=== PATIENT | female | born 1930 | race Caucasian/White ===

== ENCOUNTER 2016-08-21 23:02 | Emergency (ER) | payer MEDICARE, OTHER ==
[~2016-08-21] VITALS: Ht 158.8 cm; Wt 73.2 kg
[2016-08-21 23:10] VITALS: RESP 16; O2SAT 98
[2016-08-21] MEDS ORDERED: INDA1.25 PO (23:39)
[2016-08-21] MEDS ORDERED: ATEN25TA PO (23:39)
[2016-08-21 23:40] VITALS: BP 208/82; PULSE 64; RESP 16; TEMP 98.4; O2SAT 99
[2016-08-21] MEDS ORDERED: SODIUM CHLORIDE 0.9% FLUSH 10 ML FLUSH IVF PRN (23:45)
[2016-08-21] MEDS ORDERED: ACETAMINOPHEN/HYDROcodone 325 MG/5 MG TAB PO ONE (23:45)
[2016-08-22] MEDS ORDERED: ENAL10TA PO (00:14)
[2016-08-22] MEDS ORDERED: LEVO50TA4 PO (00:14)
[2016-08-22] MEDS ORDERED: RABE1TAB PO (00:14)
[2016-08-22] MEDS ORDERED: ATOR10TA15 PO (00:14)
--- NOTE | 2016-08-22 00:15 | RADHPO ---
EXAM DATE/TIME: 08/21/2016 23:44 [place] COMPARISON: No previous studies available for comparison. INDICATIONS : Chest pain after fall this pm. MEDICAL HISTORY : None. SURGICAL HISTORY : None. ENCOUNTER: Initial ACUITY: 1 day PAIN SCORE: 8/10 LOCATION: Bilateral upper chest FINDINGS: PA and lateral views of the chest demonstrate the lungs to be symmetrically aerated without evidence of mass, infiltrate or effusion. The cardiomediastinal contours are unremarkable. Osseous structure s are intact. CONCLUSION: No acute disease. Armando Joseph MD on August 22, 2016 at 0:14 Board Certified Radiologist. This report was verified electronically.
[2016-08-22 00:58] LABS: AUTOMATED NEUTROPHIL # 4.9 TH/MM3 (1.8-7.7); BASOPHIL # 0.1 TH/MM3 (0-0.2); BASOPHIL % 0.6 % (0.0-2.0); EOSINOPHIL # 0.1 TH/MM3 (0-0.4); EOSINOPHIL % 1.4 % (0.0-4.0); HEMATOCRIT 36.4 % (35.0-46.0); HEMO FLAGS DIFF FINAL; LYMPH % 34.4 % (9.0-44.0); MEAN CELL VOLUME 87.2 FL (80.0-100.0); MEAN CORPUSCULAR HEMOGLOBIN 28.8 PG (27.0-34.0); MONO % 8.2 % (0.0-8.0); NEUT % 55.4 % (16.0-70.0); PLATELET COUNT 406 TH/MM3 (150-450); RED BLOOD COUNT 4.18 MIL/MM3 (4.00-5.30); RED CELL DISTRIBUTION WIDTH 13.3 % (11.6-17.2); WHITE BLOOD COUNT 8.8 TH/MM3 (4.0-11.0)
[2016-08-22 01:11] LABS: CHLORIDE 93 MEQ/L (98-107); POTASSIUM 3.8 MEQ/L (3.5-5.1); SODIUM (NA) 129 MEQ/L (136-145)
[2016-08-22 01:15] LABS: ANION GAP 10 MEQ/L (5-15); APTT (PATIENT) 23.6 SEC (24.3-30.1); BICARBONATE 25.7 MEQ/L (21.0-32.0); BLOOD UREA NITROGEN 25 MG/DL (7-18); INTERNATIONAL NORMALIZED RATIO 0.9 RATIO; PROTHROMBIN TIME - PATIENT 9.8 SEC (9.8-11.6)
[2016-08-22 01:18] LABS: ALT (GPT) 19 U/L (10-53); AST (GOT) 17 U/L (15-37); GLOMERULAR FILTRATION RATE 43 ML/MIN (>89)
[2016-08-22 01:20] LABS: TOTAL BILIRUBIN ADULT 0.4 MG/DL (0.2-1.0)
[2016-08-22 01:21] LABS: ALKALINE PHOSPHATASE 110 U/L (45-117); CREATINE KINASE 107 U/L (26-192)
[2016-08-22 01:30] VITALS: BP 148/78; PULSE 64; RESP 16; O2SAT 99
[2016-08-22 01:33] LABS: CKMB 3.2 NG/ML (0.5-3.6)
[2016-08-22] MEDS ORDERED: NORC5TAB PO ×2 (02:06→02:23)
--- NOTE | 2016-08-22 02:07 | PD ---
HPI Chief Complaint: Fall Time Seen by Provider: 23:30 Travel History International Travel<30 days: No Contact w/Intl Traveler<30days: No Traveled to known affect area: No History of Present Illness HPI Patient is an 86-year-old female presents emergency department after slip and fall leading to an abrasion of her right hand as well as some anterior chest pain. Patient states she was getting out of bed and slipped and rubbed her right hand down the side of the piece of furniture. She states she landed she has chest pain which is worse when she sits up forward or takes deep breath. She denies any chest pain shortness of breath weakness dizziness or presyncopal symptoms before the event happened. Her chief concern is the abrasion to the right hand a secondary concern of her chest achiness. She denies any head injury or neck injury. She denies any use of blood thinners. She states she has a history of left bundle branch block. PFSH Past Medical History Heart Rhythm Problems: Yes (HX A-FIB) Diminished Hearing: Yes (BILAT HEARING AIDS) Diverticulitis: Yes GERD: Yes Hypertension: Yes Thyroid Disease: Yes Tetanus Vaccination: < 5 Years Influenza Vaccination: Yes ?: Not : 0 Past Surgical History Appendectomy: Yes Cholecystectomy: Yes Hysterectomy: Yes Tonsillectomy: Yes Social History Alcohol Use: No Tobacco Use: No Substance Use: No Allergies-Medications (Allergen,Severity, Reaction): Coded Allergies: No Known Allergies (Unverified , 08/21/16) Reported Meds & Prescriptions Reported Meds & Active Scripts Active Phillips (Hydrocodone-Acetaminophen) 5-325 mg Tab 1 Tab PO Q6H PRN Reported Rabeprazole (Rabeprazole Sodium) 20 Mg Tab 20 Mg PO DAILY Enalapril (Enalapril Maleate) 10 Mg Tab 10 Mg PO BID Atorvastatin (Atorvastatin Calcium) 10 Mg Tab 10 Mg PO HS Levothyroxine (Levothyroxine Sodium) 50 Mcg Tab 50 Mcg PO DAILY Indapamide 1.25 Mg Tab 1 Tab PO DAILY Atenolol 25 Mg Tab 25 Mg PO DAILY Review of Systems Except as stated in HPI: all other systems reviewed are Neg Physical Exam Narrative GENERAL: Well-developed well-nourished, quite pleasant in no apparent distress. SKIN: Patient has a curvilinear abrasion to the dorsum of the right hand approximately 4 cm to 5 cm in length. There is no active bleeding. HEAD: Atraumatic. No raccoons eyes no more signs. Normocephalic. EYES: Pupils equal and round. No scleral icterus. No injection or drainage. ENT: No nasal bleeding or discharge. Mucous membranes pink and moist. NECK: Trachea midline. No JVD. CARDIOVASCULAR: Regular rate and rhythm. No murmur appreciated. There is some left-sided chest wall tenderness. Fairly mild. Patient does have tenderness when she sits forward. RESPIRATORY: No accessory muscle use. Clear to auscultation. Breath sounds equal bilaterally. GASTROINTESTINAL: Abdomen soft, non-tender, nondistended. Hepatic and splenic margins not palpable. MUSCULOSKELETAL: No obvious deformities. No clubbing. No cyanosis. No edema. Pulses motor and sensory are intact distally, cap refill is brisk in all digits of the upper extremities. No tenderness of the wrist or elbow or shoulder in the upper extremities. No midline CT or L-spine tenderness. Head is atraumatic. NEUROLOGICAL: Awake and alert. No obvious cranial nerve deficits. Motor grossly within normal limits. Normal speech. PSYCHIATRIC: Appropriate mood and affect; insight and judgment normal. Data Data Last Documented VS Vital Signs Date Time Temp Pulse Resp B/P Pulse Ox O2 Delivery O2 Flow Rate FiO2 08/22/16 02:25 63 16 166/63 99 Room Air 08/21/16 23:40 98.4 Orders Electrocardiogram (08/21/16 23:36) Ckmb (Isoenzyme) Profile (08/21/16 23:36) Complete Blood Count With Diff (08/21/16 23:36) Comprehensive Metabolic Panel (08/21/16 23:36) Magnesium (Mg) (08/21/16 23:36) Prothrombin Time / Inr (Pt) (08/21/16 23:36) Act Partial Throm Time (Ptt) (08/21/16 23:36) Troponin I (08/21/16 23:36) Ecg Monitoring (08/21/16 23:36) Iv Access Insert/Monitor (08/21/16 23:36) Oximetry (08/21/16 23:36) Oxygen Administration (08/21/16 23:36) Sodium Chloride 0.9% Flush (Ns Flush) (08/21/16 23:45) Chest, Pa & Lat (08/21/16 23:36) Acetamin-Hydrocod 325-5 Mg (Phillips 5-325 (08/21/16 23:45) CKMB (08/22/16 00:25) CKMB% (08/22/16 00:25) Resp Incentive Spirometry (08/22/16 ) Labs Laboratory Tests Test 08/22/16 00:25 White Blood Count 8.8 TH/MM3 Red Blood Count 4.18 MIL/MM3 Hemoglobin 12.0 GM/DL Hematocrit 36.4 % Mean Corpuscular Volume 87.2 FL Mean Corpuscular Hemoglobin 28.8 PG Mean Corpuscular Hemoglobin 33.0 % Concent Red Cell Distribution Width 13.3 % Platelet Count 406 TH/MM3 Mean Platelet Volume 7.5 FL Neutrophils (%) (Auto) 55.4 % Lymphocytes (%) (Auto) 34.4 % Monocytes (%) (Auto) 8.2 % Eosinophils (%) (Auto) 1.4 % Basophils (%) (Auto) 0.6 % Neutrophils # (Auto) 4.9 TH/MM3 Lymphocytes # (Auto) 3.0 TH/MM3 Monocytes # (Auto) 0.7 TH/MM3 Eosinophils # (Auto) 0.1 TH/MM3 Basophils # (Auto) 0.1 TH/MM3 CBC Comment DIFF FINAL Differential Comment Prothrombin Time 9.8 SEC Prothromb Time International 0.9 RATIO Ratio Activated Partial 23.6 SEC Thromboplast Time Sodium Level 129 MEQ/L Potassium Level 3.8 MEQ/L Chloride Level 93 MEQ/L Carbon Dioxide Level 25.7 MEQ/L Anion Gap 10 MEQ/L Blood Urea Nitrogen 25 MG/DL Creatinine 1.20 MG/DL Estimat Glomerular Filtration 43 ML/MIN Rate Random Glucose 102 MG/DL Calcium Level 9.2 MG/DL Magnesium Level 2.0 MG/DL Total Bilirubin 0.4 MG/DL Aspartate Amino Transf 17 U/L (AST/SGOT) Alanine Aminotransferase 19 U/L (ALT/SGPT) Alkaline Phosphatase 110 U/L Total Creatine Kinase 107 U/L Creatine Kinase MB 3.2 NG/ML Troponin I LESS THAN 0.02 NG/ML Total Protein 7.5 GM/DL Albumin 3.6 GM/DL MDM Medical Decision Making Medical Screen Exam Complete: Yes Emergency Medical Condition: Yes Interpretation(s) EKG shows sinus rhythm with left bundle branch block, no Tati should criteria. No previous for comparison. This an abnormal EKG. Differential Diagnosis Hand abrasion, chest wall pain, ACS seems highly unlikely, AMI seems highly unlikely. Narrative Course Patient was roomed in emergency department, chest x-ray reveals no acute fractures. Her wound was dressed with a non-adhesive dressing. Is no indication for CT head or C-spine is patient declines hitting her head or neck and she seems reliable historian. Troponin was pursued and is negative. I think her pain is highly atypical for cardiac etiology. She would like to go home currently. Discussed that she needs to follow up with her primary care physician of the chest pain does not resolve. Discussed with her that I cannot completely rule out cardiac causes but at this time I think she is stable to follow up with her primary care physician. She agrees with this assessment. Last 24 hours Impressions Chest X-Ray 08/21/16 1756 Signed Impressions: Service Date/Time: Sunday, August 21, 2016 23:44 - CONCLUSION: No acute disease. Armando Joseph MD Discussed symptomatic management home including incentive spirometry and follow- up with a primary care physician and return to ED criteria. The last tetanus shot was less than 5 years ago. Diagnosis Primary Impression: Chest wall pain Additional Impressions: Fall Qualified Code: W19.XXXA - Fall, initial encounter Abrasion Med/Other Pt SpecificInfo: Prescription(s) given Scripts Hydrocodone-Acetaminophen (Phillips)5-325 mg Tab1 Tab PO Q6H PRN (PAIN) #15 TAB Ref 0 Prov:Anshu Moore MD 08/22/16 Disposition: 01 DISCHARGE HOME Condition: Stable Anshu Moore MD August 22, 2016 02:06
[2016-08-22 02:25] VITALS: BP 166/63; PULSE 63; RESP 16; O2SAT 99
--- NOTE | 2016-08-22 14:34 | EKG ---
Date Performed: 08/22/2016 Time Performed: 00:10:30 PTAGE: 86 years EKG: Sinus rhythm Possible left atrial abnormality Left bundle branch block Abnormal ECG NO PREVIOUS TRACING DOCTOR: Deejay Evans Interpretating Date/Time 08/22/2016 14:33:31
== END 2016-08-22 02:40 | disposition home or self-care (01) ==
LOC: PHED 23:02
DX: R07.89 Other chest pain (principal); S60.511A Abrasion of right hand, initial encounter; I44.7 Left bundle-branch block, unspecified; R94.31 Abnormal electrocardiogram [ECG] [EKG]; I48.91 Unspecified atrial fibrillation; K21.9 Gastro-esophageal reflux disease without esophagitis; Z79.899 Other long term (current) drug therapy; W01.0XXA Fall on same level from slipping, tripping and stumbling without subsequent striking against object, initial encounter
CPT/HCPCS: 71020; 80053; 82550; 82552; 83735; 84484; 85025; 85610; 85730; 93005; 94150